=== PATIENT | male | born 1940 | race Caucasian/White ===

== ENCOUNTER 2016-11-28 08:47 | Emergency (ER) | payer OTHER, MEDICARE, BC ==
--- OUTSIDE RECORDS SUMMARY | 2016-11-28 09:44 | XMS REPORT | Continuity of Care Document ---
:1940 Author Organization [facility] ([facility]) [place] [address] Phone [phone] Care Team Providers Name Role Phone Jazz Chacon Primary Care Provider [phone] Source Comments This disclosure is being made pursuant to the Care Everywhere program, applicable federal and state laws, and may not contain all informaitonavailable regarding this patient.[facility] ([facility]) Active Allergies and Adverse Reactions No Known Allergies Current Medications Prescription Sig. Disp. Refills Start Date End Date Status omeprazole 20 mg Take 20 mg by Active extended release mouth daily. capsule multivitamin tablet Take 1 Tab by Active mouth daily. ASCORBATE CALCIUM Take 1 Tab by Active (VITAMIN C PO) mouth daily allopurinol 300 mg Take 100 mg by Active tablet mouth daily. diltiazem 240 mg ER Take 240 mg by 3 07/23/2015 Active capsule mouth daily. JANTOVEN 4 mg tablet 9mg one day, 10mg 2 08/03/2015 Active the next JANTOVEN 1 mg tab 9mg one day, 10mg 07/08/2015 Active tablet the next furosemide 40 mg tablet Take 0.5 tablets 30 tablet 11 04/28/2016 Active (20 mg total) by mouth daily. carBAMazepine Take 100 mg by 1 09/16/2016 Active (CARBATROL) 200 mg CR mouth 2 times capsule daily. losartan 100 mg tablet Take 100 mg by 5 09/21/2016 Active mouth daily. 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 Overview: For RCC in 2000 -no chemo or radiation given Chronic kidney disease, stage IV (severe) 06/14/2011 Resolved Problems Problem Noted Date Resolved Date Lumps on the skin 06/14/2011 08/30/2015 Overview: Most Recent Encounters Date Type Specialty Providers Description 10/24/2016 Office Visit Heart and Vascular Lavonne Colindres MD Dx: Chronic atrial fibrillation (Primary Dx) 10/19/2016 Telephone Renal and Hypertension My 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, Chief Comp: STEAM TABLE ATTENDANT Appointment Request Immunizations Name Dates Previously Given Next Due Influenza 09/29/2016,12/25/2012 Influenza, unspecified 07/15/2013 Pneumococcal Conjugate, PCV13 (Prevnar 13) 10/13/2016 Zoster, live (Zostavax) 06/06/2013 Social History Tobacco Use Types Packs/Day Years Used Date Former Smoker Cigarettes 1 20 Quit: 10/15/2003 Smokeless Tobacco: Former User Snuff Quit: 09/14/2016 Tobacco Cessation:Counseling Given: Yes Comments: Alcohol Use Drinks/Week oz/Week Comments Yes 5 Shots of liquor 3.0 every night Last Filed Vital Signs Vital Sign Reading Time Taken Blood Pressure 120/64 10/24/2016 2:07 PM [employer] Pulse 80 10/24/2016 2:07 PM [employer] Temperature 35.5 C (95.9 F) 03/14/2016 8:42 AM CDT Respiratory Rate 20 01/22/2014 8:00 AM CDT Height 1.803 m (5' 11") 10/24/2016 2:07 PM [employer] Weight 86.183 kg (190 lb) 10/24/2016 2:07 PM [employer] Body Mass Index 26.51 10/24/2016 2:07 PM [employer] Oxygen Saturation 97% 01/22/2014 7:52 AM CDT Plan of Care Date Type Specialty Providers Description 12/19/2016 Appointment Renal and Hypertension My Acosta ARNP Chief Comp: Patient [address] [place] [address] Visit [phone] (Fax) 03/27/2017 Appointment Heart and Vascular Lavonne Colindres MD Chief Comp: Patient [address] [place] [address] Visit [phone] (Fax) Health Maintenance Due Date Last Done Comments Hepatitis B Vaccine (1 of 3 - Primary 1940 Series) Tdap Vaccine 1951 Td Vaccine 1958 Colonoscopy 1990 Pneumococcal Vaccine (2 of 2 - 10/13/2017 10/13/2016 PPSV23) Lipid Disorder Screening 03/14/2021 03/14/2016 Zoster Vaccine Completed 06/06/2013 Influenza Vaccine: Seasonal Completed 09/29/2016, 07/15/2013, 12/25/2012 Results from Last 3 Months Not on file
--- NOTE | 2016-11-28 09:55 | ERNOTE ---
Medical Problem HPI - General Chief Complaint: Foreign Body Time Seen by Provider: 11/28/16 09:43 Source: patient Exam Limitations: no limitations - Immun/Allergies/Home Medications Immunizations: IMMUNIZATION HX History of Influenza Vaccine Yes Hx Pneumococcal Vaccination Yes Allergies/Adverse Reactions: Allergies morphine Adverse Reaction (Unknown, Verified 11/28/16 08:58) Nausea FROM [employer]GE[employer] SHEET Home Medications: HOME MEDICATIONS Diltiazem HCl [Diltia Xt] 240 mg PO BID 10/15/12 [Last Taken Unknown] Fluticasone Furoate [Veramyst] 1 spray INH DAILY 10/15/12 [Last Taken Unknown] Multivitamin with Minerals [Multiple Vitamin] 1 tab PO DAILY 10/15/12 [Last Taken Unknown] Warfarin Sodium [Coumadin] 9 mg PO DAILY 10/15/12 [Last Taken Unknown] Losartan Potassium [Cozaar] 100 mg PO DAILY 12/25/12 [Last Taken Unknown] Omeprazole [Prilosec Generic] 20 mg PO DAILY 12/25/12 [Last Taken Unknown] Furosemide [Lasix] 40 mg PO DAILY 01/05/14 [Last Taken Unknown] Allopurinol [Zyloprim] 300 mg PO BID 03/15/15 [Last Taken Unknown] - History of Present History Narrative: Patient was at his dentist this morning and accidentally swallowed a crown. He coughed briefly initially but has been asymptomatic since, no coughing, no pain. His dentist wanted him to be evaluated to make sure he did not aspirate the crown Date (Duration): 11/28/16 Review of Systems - Review of Systems Constitutional: Absent: recent illness, fever ENT: Absent: nose congestion, sore throat Respiratory: Absent: shortness of breath, cough Cardiology: Absent: chest pain Gastrointestinal/Abdominal: Absent: nausea, vomiting, abdominal pain Neurological: Absent: headache - Patient's Past Medical History Patient History - Medical: GERD, Renal Failure Patient History - Cardiac/Respiratory: Atrial Fibrillation, Hypertension, Hyperlipidemia Patient History - Cancer: Kidney Patient History - Surgical Procedures: Appendectomy Patient History - Other: None - Family History Mother Family History - Medical: Father Family History - Medical: - Social History Living Situations: spouse Abuse History: No History of abuse Psych History: No pertinent hx Smoking Status: Former smoker Alcohol Use: heavy Drug Use: none - Immunizations Hx Pneumococcal Vaccination: Yes History of Influenza Vaccine: Yes Physical Exam - Physical Exam General Appearance: Present: wd/wn, alert, no apparent distress Respiratory: Present: no respiratory distress, normal breath sounds, no accessory muscle use, lungs clear Cardiovascular/Chest: Present: no murmur, irregularly irregular Gastrointestinal/Abdominal: Present: normal bowel sounds, nontender, nondistended, soft Neurological Exam: Present: alert, oriented, normal mood/affect Skin Exam: Present: normal color, warm/dry ED Progress - Vital Signs Patient's Vital Signs:: I have reviewed the patient's vital signs. Vital Signs: Vital Signs 11/28/16 08:55 Temperature 35.5 C L Pulse Rate 95 Respiratory 14 Rate Blood Pressure 160/111 O2 Sat by Pulse 97 Oximetry - X-Ray X-Ray #1 X-Ray: abdomen - foreign body in abdomen on lateral view Interpretation: Reviewed by me - Progress/Reassessment Chief Complaint: Foreign Body Departure - Departure Clinical Impression: Foreign body, swallowed Qualifiers: Encounter type: initial encounter Qualified Code(s): T18.9XXA - Foreign body of alimentary tract, part unspecified, initial encounter Disposition: Home self-care Condition: Good Instructions: Swallowed Foreign Body, Adult, [id number] Additional Instructions: it looks like the crown is already in your abdomen, there should be no problem passing it through, come back to the ER for any concerns Referrals: Jazz Chacon MD [Primary Care Provider] -
[2016-11-28 10:11] VITALS: BP 164/105
== END 2016-11-28 09:56 | disposition home or self-care (01) ==
LOC: ER 08:47
DX: T18.2XXA Foreign body in stomach, initial encounter (principal); X58.XXXA Exposure to other specified factors, initial encounter; Y93.89 Activity, other specified; Y92.531 Health care provider office as the place of occurrence of the external cause; Y99.9 Unspecified external cause status; I48.91 Unspecified atrial fibrillation; Z79.01 Long term (current) use of anticoagulants; K21.9 Gastro-esophageal reflux disease without esophagitis; I10 Essential (primary) hypertension; N19 Unspecified kidney failure; Z85.528 Personal history of other malignant neoplasm of kidney

== ENCOUNTER 2017-10-28 09:09 | Emergency (ER) | payer MEDICARE, BC ==
[2017-10-28 09:46] LABS: Hematocrit 29.5 % (42.0-52.0); Hemoglobin 10.1 gm/dL (13.5-18.0); Mean Cell Volume 105.7 fl (78-100); Mean Corpuscular Hemoglobin 36.2 pg (27-31); Mean Corpuscular Hgb Conc 34.2 g/dl (32-36); Mean Platelet Volume 8.5 fl (6.0-9.5); Platelet Count 191 K/mm3 (150-450); Red Blood Count 2.79 M/mm3 (4.7-6.0); White Blood Count 5.7 K/mm3 (4.0-10.5)
[2017-10-28 09:48] LABS: Total Cells Counted 100
[2017-10-28 09:57] LABS: INR 1.22 INR (0.90-1.10); Partial Thrombolplastin Time 32.4 Seconds (24-32); Prothrombin Time (Patient) 12.2 Seconds (9.0-11.0)
[2017-10-28 10:03] LABS: Eosinophil 4 % (0-3); Lymphocyte 19 % (20-51); Monocyte 10 % (0-9); Neutrophil 67 % (42-75); Neutrophil # 3.8 K/mm3 (1.3-6.0); Platelet Estimate Normal (NORMAL); RBC Morphology Normal (NORMAL)
[2017-10-28 10:05] VITALS: BP 142/84
--- NOTE | 2017-10-28 10:32 | ERNOTE ---
Medical Problem HPI - Narrative Date of Service: 10/28/17 - General Chief Complaint: Flu Symptoms Time Seen by Provider: 10/28/17 09:26 Source: patient Exam Limitations: no limitations - Immun/Allergies/Home Medications Immunizations: IMMUNIZATION HX History of Influenza Vaccine Yes Hx Pneumococcal Vaccination Yes Allergies/Adverse Reactions: Allergies morphine Adverse Reaction (Unknown, Verified 10/28/17 09:18) Nausea FROM SURGEON ORDER SHEET Home Medications: HOME MEDICATIONS Diltiazem HCl [Diltia Xt] 240 mg PO BID 10/15/12 [Last Taken Unknown] Fluticasone Furoate [Veramyst] 1 spray INH DAILY 10/15/12 [Last Taken Unknown] Multivitamin with Minerals [Multiple Vitamin] 1 tab PO DAILY 10/15/12 [Last Taken Unknown] Losartan Potassium [Cozaar] 100 mg PO DAILY 12/25/12 [Last Taken Unknown] Omeprazole [Prilosec Generic] 20 mg PO DAILY 12/25/12 [Last Taken Unknown] Furosemide [Lasix] 40 mg PO DAILY 01/05/14 [Last Taken Unknown] Allopurinol [Zyloprim] 300 mg PO BID 03/15/15 [Last Taken Unknown] Doxycycline Hyclate [Vibramycin] 100 mg IV BID #20 vial 10/28/17 [Last Taken Unknown] - History of Present History Narrative: patient has been sick for last 2-3 weeks with cough and congestion , feels somewhat unsteady Timing: constant Severity: moderate Modifying Factors - (Improves): Present: other - nothing Modifying Factors - (Worsens): Present: movement Review of Systems - Narrative Narrative: patient has flet sick for 2-3 weeks - Review of Systems Constitutional: Present: See HPI EYE: Present: blurred vision ENT: Present: nose congestion, nasal drainage, sore throat Respiratory: Present: shortness of breath, cough Cardiology: Present: no symptoms reported Gastrointestinal/Abdominal: Present: no symptoms reported Genitourinary: Present: no symptoms reported Musculoskeletal: Present: muscle pain, muscle stiffness Skin: Present: See HPI Neurological: Present: no symptoms reported Endocrine: Present: no symptoms reported Hematologic/Lymphatic: Present: no symptoms reported Psych: Present: no symptoms reported - Narrative Narrative: hx of a-fib - Patient's Past Medical History Patient History - Medical: GERD, Renal Failure Patient History - Cardiac/Respiratory: Atrial Fibrillation, Hypertension, Hyperlipidemia Patient History - Cancer: Kidney Patient History - Surgical Procedures: Appendectomy Patient History - Other: None - Family History Family History:: no untoward family reactions to anesthesia, no familial bleeding tendencies, no family history of premature - Family History Mother Family History - Medical: Family History - Cardiac/Respiratory: No pertinent hx Family History - Cancer: No pertinent family hx Father Family History - Medical: Family History - Cardiac/Respiratory: No pertinent hx Family History - Cancer: No pertinent family hx - Social History Living Situations: home Abuse History: No History of abuse Psych History: No pertinent hx Does anyone smoke in the home?: No Smoking Status: Former smoker Have you smoked in the past 12 months: No Do you dip or chew tobacco: No Patient requests Smoking Cessation Consult: No Initiate information on Smoking Cessation: No Alcohol Use: none Drug Use: none - Immunizations Immunizations Up to Date: No Hx Pneumococcal Vaccination: Yes History of Influenza Vaccine: Yes Physical Exam - Physical Exam Narrative: patient appears in mild distress General Appearance: Present: mild distress Head Exam: Present: normal inspection, no evidence of injury Eye Exam: Normal inspection: bilateral, PERRL: bilateral, EOMI: bilateral Ears, Nose, Throat: Present: normal ENT inspection Neck: Present: normal inspection, nontender Respiratory: Present: no respiratory distress, normal breath sounds, no accessory muscle use, chest nontender, lungs clear Cardiovascular/Chest: Present: regular rate, rhythm, no murmur, normal peripheral pulses Gastrointestinal/Abdominal: Present: normal bowel sounds, nontender, nondistended, soft, no organomegaly Back Exam: Present: normal inspection, normal range of motion, no CVA tenderness , no vertebral tenderness Extremity Exam: Present: normal inspection, non-tender, normal range of motion, no edema Neurological Exam: Present: alert, oriented, normal mood/affect, no motor/ sensory deficits DTR: N=norm/NB=norm/brisk/A=abs/DD=dull/dimin/HC=hyperactive: Bicep (R): Normal , Bicep (L): Normal, Tricep (R): Normal, Tricep (L): Normal, Knee (R): Normal, Knee (L): Normal, Ankle (R): Normal, Ankle (L): Normal ED Progress - Date and Time Seen: Date and Time: 10/28/17 10:26 condition unchanged - Vital Signs Vital Signs: Vital Signs 10/28/17 10/28/17 09:12 10:05 Temperature 36.4 C L Pulse Rate 89 86 Respiratory 12 12 Rate Blood Pressure 147/87 142/84 O2 Sat by Pulse 94 94 Oximetry - Progress/Reassessment Chief Complaint: Flu Symptoms Plan - Plan Plan: to be discharged Departure Clinical Impression: Pneumonia - Departure Disposition: Home Follow Up Needed Condition: Fair Instructions: Community-Acquired Pneumonia, Adult, [id number] Referrals: Jzaz Chacon MD [Primary Care Provider] - Prescriptions: Doxycycline Hyclate [Vibramycin] 100 mg IV BID #20 vial
== END 2017-10-28 10:33 | disposition home or self-care (01) ==
LOC: ER 09:09
DX: J18.9 Pneumonia, unspecified organism (principal); I10 Essential (primary) hypertension; I48.91 Unspecified atrial fibrillation; N19 Unspecified kidney failure; K21.9 Gastro-esophageal reflux disease without esophagitis; Z85.528 Personal history of other malignant neoplasm of kidney; Z87.891 Personal history of nicotine dependence

== ENCOUNTER 2020-08-06 03:17 | Observation (INO) ==
[2020-08-06] MEDS ORDERED: NITROGLYCERIN 0.4 MG/TAB BTL SL STA ×2 (03:36→03:50)
--- NOTE | 2020-08-06 03:50 | ERNOTE ---
Chest Pain/Cardiac HPI Chief Complaint: Chest Pain Time Seen by Provider: 08/06/20 03:35 Source: patient, RN notes reviewed Exam Limitations: no limitations Immunizations: IMMUNIZATION HX Immunizations Up to Date Yes History of Influenza Vaccine Yes Hx Pneumococcal Vaccination Yes Allergies/Adverse Reactions: Allergies morphine Adverse Reaction (Unknown, Verified 08/06/20 03:30) Nausea FROM SURGEON ORDER SHEET Home Medications: HOME MEDICATIONS Multivitamin with Minerals [Multiple Vitamin] 1 tab PO DAILY 10/15/12 [Last Taken Unknown] Warfarin Sodium [Coumadin] 6 mg PO FR 09/26/19 [Last Taken 10/16/19] sodium bicarbonate 650 mg tablet 650 mg PO BID 09/29/19 [Last Taken Unknown] omeprazole 20 mg capsule,delayed release See Rx Instructions .ROUTE .COMPLEX #90 cap 02/10/20 [Last Taken Unknown] Warfarin Sodium [Coumadin] 8 mg PO SUMOWETHSA 02/29/20 [Last Taken Unknown] warfarin 1 mg tablet 1 mg PO Q OTHER DAY #60 tab 03/26/20 [Last Taken Unknown] allopurinol 300 mg tablet 300 mg PO BID #180 tab 04/05/20 [Last Taken Unknown] furosemide 20 mg tablet 20 mg PO DAILY #180 tab 04/06/20 [Last Taken Unknown] albuterol sulfate 90 mcg/actuation aerosol inhaler 2 inh IH Q4H PRN #8.5 g 06/04/20 [Last Taken Unknown] losartan 100 mg tablet 100 mg PO DAILY #90 tab 07/20/20 [Last Taken Unknown] tiotropium bromide 18 mcg capsule with inhalation device 1 cap IH DAILY #60 inh 07/26/20 [Last Taken Unknown] carbamazepine 200 mg capsule,extended release [id number] See Rx Instructions .ROUTE .COMPLEX #60 cap 07/27/20 [Last Taken Unknown] diltiazem HCl 240 mg capsule,extended release 24 hr See Rx Instructions .ROUTE .COMPLEX #60 cap 07/27/20 [Last Taken Unknown] Narrative: Is an 80-year-old white male with past medical history significant for atrial fibrillation renal cell cancer, was seen in the ER a few days ago after falling, states he had taken a sleeping pill earlier fall asleep in a chair when he was awakened by substernal chest pain. Pain did not radiate. It is made worse with taking a deep breath. Did have some associated shortness of breath but no diaphoresis, nausea or vomiting. Did not take any medicines prior to coming to the ER and came to the ER via POV. He states he still having substernal chest pressure at this time. Denies heartburn or indigestion or changes in bowels. He does take Coumadin for his atrial fibrillation is continue this. He denies any significant chest discomfort after his fall a few days ago. He denies any abdominal pain. Timing: constant Severity/Quality: moderate, pressure Location: substernal Chest Pain Radiation: no radiation Activities at Onset: none, sleep Modifying Factors - Improves: Present: nothing Modifying Factors - Worsens: Present: breathing, movement Nitro Today/Relief: no nitro taken today Aspirin Treatment Today: no aspirin today Associated Symptoms: Absent: headache, dizziness, syncope, cough, shortness of breath, diaphoresis, fever/chills, palpitations, heartburn, nausea, vomiting, abdominal pain, weakness, back pain, swelling/lump in chest Prior Chest Pain/Cardiac Workup: Reports: prior chest pain, cardiac cath Prior Treatment: Reports: recently seen Review of Systems - Review of Systems Constitutional: Absent: fever, chills, malaise EYE: Absent: blurred vision, double vision ENT: Absent: ear pain, nose congestion, nasal drainage, sore throat Respiratory: Absent: shortness of breath, cough, orthopnea, wheezing Cardiology: Present: See HPI, chest pain. Absent: palpitations, syncope, edema, claudication Gastrointestinal/Abdominal: Present: other - Black stools that are chronic due to iron tablets he takes chronically, no change otherwise. Absent: nausea, vomiting, diarrhea, constipation, abdominal pain Genitourinary: Absent: frequency, dysuria Musculoskeletal: Present: no symptoms reported Skin: Present: no symptoms reported Neurological: Absent: emotional problems, headache, dizziness/light-headedness, seizure, weakness, numbness, tingling Endocrine: Absent: excessive sweating, flushing, intolerance to heat, intolerance to cold, increased thirst, increased urine Hematologic/Lymphatic: Present: easy bruising, easy bleeding Psych: Absent: anxiety, depressed Medical History (Last Reviewed 08/06/20 @ 03:41 by Oracio Gomez MD) History of renal cell cancer (Resolved) Onset Date: Unknown Diverticulitis (Resolved) Gout (Chronic) Onset Date: Unknown Hyperlipidemia (Chronic) Onset Date: Unknown Essential hypertension (Chronic) Onset Date: Unknown Chronic renal failure, stage 3 (moderate) (Chronic) Onset Date: Unknown Renal insufficiency (Chronic) Onset Date: ~2012 Hx of lower gastrointestinal bleeding Atrial fibrillation Onset Date: ~2012 Malignant neoplasm of kidney, except pelvis Onset Date: Unknown Surgical History: Surgical History (Last Reviewed 08/06/20 @ 03:41 by Oracio Gomez MD) History of biopsy of temporal artery Onset Date: 12/26/12 [id number]. History of colonoscopy Onset Date: 05/06/14 05/03/04 [place]-narrowing beyond 80cm, 12/04/08 [place] hyperplastic x2, prominent lymphoid aggregate w/mild inflammation. 01/06/11 [facility]- fragments of tubular adenoma @90cm, hyperplastic @55cm. 05/06/14 [facility]-tubular adenoma x3, hyperplastic polyp. 10/22/19 [facility]-capacious colon, sigmoid diverticulosis. Recheck 10 yrs. History of nephrectomy Onset Date: ~1999 right for renal cell carcinoma History of prostate biopsy Onset Date: Unknown [facility]-negative. History of repair of rotator cuff Onset Date: ~2007 [facility]-right. [place]-left. 12/26/07 [place]-right. 04/2008 [place]-right. History of tonsillectomy Onset Date: Unknown History of vasectomy Onset Date: Unknown Hx of appendectomy Onset Date: ~1941 Hx of hernia repair Onset Date: ~1957 left inguinal Family History: Family History (Last Reviewed 08/06/20 @ 03:42 by Oracio Gomez MD) Father , age 63-[place] Myocardial infarction Emphysema of lung Mother , age 83-heart disease Heart disease Brother Hepatitis C Macular degeneration HIV antibody positive Sister , age 63-stroke HIV antibody positive Brother , age 79-cancer Cancer eye w/mets Heart disease Sister Macular degeneration Social History: (Last Reviewed 08/06/20 @ 03:42 by Oracio Gomez MD) Social History: adopted: No foster care: No care home: No Marital status: lives independently: No household members: spouse number of children: 3 caregiver/support person: No current occupational status: employed Highest education level completed: Professional school degre Service: No Tobacco: Smoking Status: Current every day smoker tobacco type: smokeless tobacco Alcohol: alcohol intake: current Substance Use: substance use type: does not use Dietary Habits: caffeine: Yes Personal Safety: victim of physical abuse: No victim of emotional abuse: No Physical Exam - Physical Exam General Appearance: Present: wd/wn, alert, mild distress, moderate distress, lethargic Head Exam: Present: ecchymosis - Scattered left face and scalp Eye Exam: Normal inspection: bilateral, PERRL: bilateral, EOMI: bilateral Ears, Nose, Throat: Present: normal ENT inspection Neck: Present: normal inspection, nontender, supple Respiratory: Present: no respiratory distress, normal breath sounds, no accessory muscle use, chest nontender, lungs clear Cardiovascular/Chest: Present: no murmur, tachycardia, irregularly irregular, chest tenderness - very tender (reproduces pain) R lower costo-sterno border. Gastrointestinal/Abdominal: Present: normal bowel sounds, nondistended, soft, no organomegaly, tenderness - Mild right upper quadrant, hepatomegaly Extremity Exam: Present: normal except - - Significant ecchymosis bilateral upper and lower extremities Neurological Exam: Present: alert, oriented, no motor/sensory deficits, other - Dysphoric Skin Exam: Present: normal color, warm/dry Progress - Results and Orders Patient's Lab Results:: I have reviewed the patient's lab results. Results and Orders: Laboratory Tests 08/06/20 03:45 WBC 7.9 RBC 2.19 L Hgb 7.5 L* D Hct 23.2 L* MCV 105.9 H MCH 34.2 H MCHC 32.3 RDW 15.6 H Plt Count 119 L MPV 9.5 Immature Gran % (Auto) 0.40 Immature Gran # (Auto) 0.03 Neutrophils % 72.0 Lymphocytes % 11.9 L Monocytes % 13.2 H Eosinophils % 2.0 Basophils % 0.5 Nucleated RBC % 0.0 Neutrophils # 5.7 Lymphocytes # 0.94 L Monocytes # 1.1 H Eosinophils # 0.2 Absolute Basophils 0.0 Laboratory Tests 08/06/20 03:45 PT 20.0 H INR (Anticoag Therapy) 2.08 H PTT ([place]) 36.7 H Laboratory Tests 08/06/20 03:45 Sodium 136 Plasma Sodium 136 Potassium 4.8 H Chloride 102 Carbon Dioxide 20.7 L Anion Gap 18.1 H BUN 94 H Creatinine 5.33 H Est GFR (Non-Af Amer) 11 L BUN/Creatinine Ratio 17.6 Random Glucose 97 Calcium 8.4 Calcium Adj for Albumin 9.5 Total Bilirubin 0.4 AST 26 ALT 27 Alkaline Phosphatase 385 H Troponin I 0.042 Total Protein 6.5 Albumin 2.2 L Laboratory Tests 08/06/20 05:35 WBC 7.0 RBC 2.05 L Hgb 6.9 L* Hct 21.8 L* MCV 106.3 H MCH 33.7 H MCHC 31.7 L RDW 15.6 H Plt Count 111 L MPV 9.3 Immature Gran % (Auto) 0.30 Immature Gran # (Auto) 0.02 Neutrophils % 82.0 H Lymphocytes % 5.6 L Monocytes % 10.4 H Eosinophils % 1.4 Basophils % 0.3 Nucleated RBC % 0.0 Neutrophils # 5.7 Lymphocytes # 0.39 L Monocytes # 0.7 Eosinophils # 0.1 Absolute Basophils 0.0 Laboratory Tests 08/06/20 05:35 Troponin I 0.044 - Vital Signs Patient's Vital Signs:: I have reviewed the patient's vital signs. Vital Signs: Vital Signs 08/06/20 03:17 Temperature 37.2 C Pulse Rate 102 H Respiratory Rate 22 H Blood Pressure 169/111 H O2 Sat by Pulse Oximetry 100 - EKG EKG #1 EKG: atrial fibrillation, no ST T wave changes, unchanged from - 05/21/2020 EKG read: Interp. by me EKG Comments: No acute EKG changes. Patient is still in atrial fibrillation. EKG appears to be unchanged from 05/21/2020. - X-Ray X-Ray #1 X-Ray: chest Interpretation: Interp. by me X-ray Comments: Right pleural effusion. No other acute cardiopulmonary findings. - CT/Ultrasound CT/Ultrasound Narrative: CT of the chest without contrast. Impression: 1. Moderate right pleural effusion with small to moderate left pleural effusion noted. Right posterior lower lobe infiltrate is noted. 2. No pneumothorax noted. 3. Dense coronary artery vascular calcium noted. There is a minimal 3 mm pericardial effusion noted. 4. Noted definite rib fracture noted. 5. Very small amount of fluid adjacent to the liver and upper abdomen. - Progress/Reassessment Chief Complaint: Chest Pain Progress:: Improved Progress Note-Subjective: 08/06/20 04:31 Patient states nitroglycerin x2 did not significantly improve his pain. 08/06/20 06:14 Patient did state that his chest pain was improved with the Toradol 50 mg IV x1. Patient refused ice due to already feeling chilled. He does feel tired and weak. - Transfer of Care Expected Disposition: Admit Additional Notes: Patient discussed with Dr. Santacruz who is agreeable to admit for blood transfusion and further investigation as to the source of his bleeding. Discussed with her the chest pain which believe is costochondral in nature, acute blood loss anemia, pleural effusion and chronic kidney disease. She has requested a CT of the chest be done on the patient due to his pleural effusion to be sure that this is not because of his acute blood loss anemia. Will type and cross him with irradiated blood due to his history of renal cancer. Plan - Plan Plan: Patient with a hemoglobin is 7.5 which is down from 9.3 on 08/02/2020. Given his significant ecchymosis on arms and legs is very possible that this is the cause of his decreased hemoglobin. Will type and screen him for now, given his chest pain and tachycardia. Repeat hemoglobin shows 6.9. Uncertain as to where the blood loss is coming from but would be concerned that its possibly in the chest cavity given pleural effusion and chest pain. Will discuss with on-call physician her comfort level with admission for transfusion here, especially in light of his creatinine being 5.33. Plan discussed with the patient and his . Will admit for transfusion and further investigation. 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
[2020-08-06 03:52] LABS: Mean Cell Volume 105.9 fl (78-100); Mean Corpuscular Hemoglobin 34.2 pg (27-31); Mean Corpuscular Hgb Conc 32.3 g/dl (32-36); Mean Platelet Volume 9.5 fl (8-11.3); Neutrophil # 5.7 K/mm3 (1.3-6.0); Platelet Count 119 K/mm3 (150-450); Red Blood Count 2.19 M/mm3 (4.7-6.0); Red Cell Distribution Width 15.6 % (11.5-14.0); White Blood Count 7.9 K/mm3 (4.0-10.5)
[2020-08-06 03:55] LABS: Hematocrit 23.2 % (42.0-52.0); Hemoglobin 7.5 gm/dL (13.5-18.0)
[2020-08-06 04:04] LABS: INR 2.08 INR (0.92-1.08); Partial Thrombolplastin Time 36.7 Seconds (24-32)
[2020-08-06 04:10] LABS: Albumin * 2.2 gm/dl (3.4-5.0); Anion Gap 18.1 mmol/L (6.8-13.8); BUN/Creatinine Ratio 17.6 (9.0-21.6); Bilirubin, Total 0.4 mg/dL (0.0-1.1); Ca. Corrected For Albumin 9.5 mg/dL (8.4-10.2); Calcium * 8.4 mg/dL (7.9-10.9); Carbon Dioxide 20.7 mmol/L (24-32.6); Potassium 4.8 mmol/L (3.4-4.6); Total Protein 6.5 gm/dL (6.2-8.2)
[2020-08-06 04:15] LABS: Troponin I 0.042 ng/mL (0.00-0.10)
[2020-08-06] MEDS ORDERED: KETOROLAC TROMETHAMINE 30 MG/ML VIAL IV ONE (04:28)
[2020-08-06 05:42] LABS: Mean Cell Volume 106.3 fl (78-100); Mean Corpuscular Hemoglobin 33.7 pg (27-31); Mean Corpuscular Hgb Conc 31.7 g/dl (32-36); Mean Platelet Volume 9.3 fl (8-11.3); Neutrophil # 5.7 K/mm3 (1.3-6.0); Platelet Count 111 K/mm3 (150-450); Red Blood Count 2.05 M/mm3 (4.7-6.0); Red Cell Distribution Width 15.6 % (11.5-14.0)
[2020-08-06 05:43] LABS: Hematocrit 21.8 % (42.0-52.0); Hemoglobin 6.9 gm/dL (13.5-18.0)
[2020-08-06] MEDS ORDERED: ACETAMINOPHEN 325 MG TABLET PO ONE (06:38)
[2020-08-06] MEDS ORDERED: ACETAMINOPHEN 500 MG TABLET PO PRN (09:24)
[2020-08-06] MEDS ORDERED: ALBUTEROL SULFATE 2.5 MG/0.5 ML VIAL.NEB IH PRN (09:25)
[2020-08-06] MEDS ORDERED: DILTIAZEM HCL 240 MG CAP.SR.24H PO SCH (09:30)
[2020-08-06] MEDS ORDERED: SODIUM BICARBONATE 650 MG TABLET PO SCH (09:30)
[2020-08-06] MEDS ORDERED: carBAMazepine 200 MG TAB.SR.12H PO SCH (09:30)
[2020-08-06] MEDS ORDERED: TIOTROPIUM BROMIDE 5 CAP INHALER IH SCH (09:30)
[2020-08-06] MEDS ORDERED: MULTIVITAMINS 1 CAP CAPSULE PO SCH (09:30)
--- NOTE | 2020-08-06 10:00 | HP ---
Chief Complaint - Chief Complaint Date of Service: 08/06/20 Time of Service: 09:43 Chief Complaint: I fell several days ago and and injured my legs, I also had chest pain yesterday. History of Present Illness: 80-year-old male with past medical history of end-stage renal disease, hypertension, renal cell carcinoma, anemia of chronic disease, COPD, hyperlipidemia, atrial fibrillation, was evaluated in the ER for chest pain/pressure accompanied by worsening shortness of breath over the past 2 days. Patient reports that he was evaluated in the ER 3 days ago for a fall that occurred while going up some steps in front of his home. The patient fell onto his legs and torso injuring his shins which caused significant bleeding. The patient is currently on Coumadin for atrial fibrillation which resulted in prolonged bleeding that was difficult to stop. So the patient came into the ER where he was evaluated and his injuries were cleaned and dressings were applied. He was then discharged home. However he reports the following night he fell asleep in his arm chair and was awakened by a retrosternal chest pain which he has not had before. He reports the pain was sharp and was accompanied by pressure in his chest, he denies heart disease such as heart attacks in the past. The patient does report having a long history with COPD and says that his condition has been getting worse despite his inhalers prescribed by his pu lmonologist but he denies being on oxygen. Once in the ER the patient underwent chest imaging which revealed bilateral pleural effusions and atelectasis but no hemothorax. EKG was unchanged from his previous and there was no signs of MO, and his troponins were negative. Once given pain medications his pain improved. The pain appears to be pleuritic in nature which favors a costochondral etiolo gy more than anything else. Medical History (Last Reviewed 08/06/20 @ 03:41 by Oracio Gomez MD) History of renal cell cancer (Resolved) Onset Date: Unknown Diverticulitis (Resolved) Gout (Chronic) Onset Date: Unknown Hyperlipidemia (Chronic) Onset Date: Unknown Essential hypertension (Chronic) Onset Date: Unknown Chronic renal failure, stage 3 (moderate) (Chronic) Onset Date: Unknown Renal insufficiency (Chronic) Onset Date: ~2012 Hx of lower gastrointestinal bleeding Atrial fibrillation Onset Date: ~2012 Malignant neoplasm of kidney, except pelvis Onset Date: Unknown Surgical History: Surgical History (Last Reviewed 08/06/20 @ 03:41 by Oracio Gomez MD) History of biopsy of temporal artery Onset Date: 12/26/12 [facility]ucil[facility]. History of colonoscopy Onset Date: 05/06/14 05/03/04 [place]-narrowing beyond 80cm, 12/04/08 [place] hyperplastic x2, prominent lymphoid aggregate w/mild inflammation. 01/06/11 [facility]- fragments of tubular adenoma @90cm, hyperplastic @55cm. 05/06/14 [facility]-tubular adenoma x3, hyperplastic polyp. 10/22/19 [place]-capacious colon, sigmoid diverticulosis. Recheck 10 yrs. History of nephrectomy Onset Date: ~1999 right for renal cell carcinoma History of prostate biopsy Onset Date: Unknown [facility]-negative. History of repair of rotator cuff Onset Date: ~2007 [facility]-right. [place]-left. 12/26/07 [place]-right. 04/2008 [place]-right. History of tonsillectomy Onset Date: Unknown History of vasectomy Onset Date: Unknown Hx of appendectomy Onset Date: ~1941 Hx of hernia repair Onset Date: ~1957 left inguinal Family History: Family History (Last Reviewed 08/06/20 @ 03:42 by Oracio Gomze MD) Father , age 63-[place] Myocardial infarction Emphysema of lung Mother , age 83-heart disease Heart disease Brother Hepatitis C Macular degeneration HIV antibody positive Sister , age 63-stroke HIV antibody positive Brother , age 79-cancer Cancer eye w/mets Heart disease Sister Macular degeneration Social History: (Last Reviewed 08/06/20 @ 03:42 by Oracio Gomez MD) Social History: adopted: No foster care: No longterm: No Marital status: lives independently: No household members: spouse number of children: 3 caregiver/support person: No current occupational status: employed Highest education level completed: Professional school degre Service: No Tobacco: Smoking Status: Current every day smoker tobacco type: smokeless tobacco Alcohol: alcohol intake: current Substance Use: substance use type: does not use Dietary Habits: caffeine: Yes Personal Safety: victim of physical abuse: No victim of emotional abuse: No Peds Patient Hx - Developmental: No Pertinent Hx Peds Patient Hx - Medical: No Pertinent Hx Peds Patient Hx - Cardiac/Respiratory: No Pertinent Hx Peds Patient Hx - Surgical: No Surgical History Patient History - Cancer: No Hx of Cancer Review Of Systems (GEN) - Review of Systems Generalized/Overall Review: Present: Weakness EENTM: Present: No Symptoms Reported Respiratory: Present: Shortness of Breath Cardiac: Present: Chest Pain Abdominal: Present: No Symptoms Reported Genitourinary: Present: No Symptoms Reported Musculoskeletal: Present: Joint Pain - Bilateral lower extremity pain due to fall Neurological: Present: No Symptoms Reported Skin: Present: No Symptoms Reported Endocrine: Present: No Symptoms Reported Immunizations: IMMUNIZATION HX Immunizations Up to Date Yes History of Influenza Vaccine Yes Hx Pneumococcal Vaccination Yes Allergies/Adverse Reactions: Allergies Allergy/AdvReac Type Severity Reaction Status Date / Time morphine AdvReac Unknown Nausea Verified 08/06/20 03:30 Home Medications: HOME MEDICATIONS Multivitamin with Minerals [Multiple Vitamin] 1 tab PO DAILY 10/15/12 [Last Taken Unknown] Warfarin Sodium [Coumadin] 4 mg PO FR 09/26/19 [Last Taken 10/16/19] sodium bicarbonate 650 mg tablet 650 mg PO BID 09/29/19 [Last Taken Unknown] omeprazole 20 mg capsule,delayed release See Rx Instructions .ROUTE .COMPLEX #90 cap 02/10/20 [Last Taken Unknown] Warfarin Sodium [Coumadin] 8 mg PO SUMOWETHSA 02/29/20 [Last Taken 08/05/20] warfarin 1 mg tablet 1 mg PO Q OTHER DAY #60 tab 03/26/20 [Last Taken Unknown] allopurinol 300 mg tablet 300 mg PO BID #180 tab 04/05/20 [Last Taken Unknown] furosemide 20 mg tablet 20 mg PO DAILY #180 tab 04/06/20 [Last Taken Unknown] albuterol sulfate 90 mcg/actuation aerosol inhaler 2 inh IH Q4H PRN #8.5 g 06/04/20 [Last Taken Unknown] losartan 100 mg tablet 100 mg PO DAILY #90 tab 07/20/20 [Last Taken Unknown] tiotropium bromide 18 mcg capsule with inhalation device 1 cap IH DAILY #60 inh 07/26/20 [Last Taken Unknown] carbamazepine 200 mg capsule,extended release [id number] See Rx Instructions .ROUTE .COMPLEX #60 cap 07/27/20 [Last Taken Unknown] diltiazem HCl 240 mg capsule,extended release 24 hr See Rx Instructions .ROUTE .COMPLEX #60 cap 07/27/20 [Last Taken Unknown] Exam - Exam Vital Signs: Vital Signs - Last Taken Temp 36.9 C 08/06/20 08:06 Pulse 84 08/06/20 08:06 Resp 16 08/06/20 08:06 BP 135/70 08/06/20 08:06 Pulse Ox 100 08/06/20 08:06 Constitutional: Present: Alert, Oriented x3, Cooperative, Well developed, Well nourished, No distress, Elderly ENT Exam: Present: normal ENT inspection, hearing grossly normal Eye Exam: bilateral eye: normal inspection, PERRL, EOMI Neck: Present: non-tender, full range of motion, supple, normal inspection, trachea midline Back Exam: Present: normal inspection, no CVA tenderness, no vertebral tenderness Breasts: Present: Exam deferred Respiratory: Present: chest non-tender, lungs clear, no respiratory distress, no accessory muscle use, decreased breath sounds Cardiovascular/Chest: Present: no chest tenderness, no edema, no gallop, no JVD, no murmur, no rub, irregularly irregular Peripheral Pulses: dorsalis-pedis (R): 2+, dorsalis-pedis (L): 2+ Abdomen: Present: Normal bowel sounds, soft, nontender, nondistended, no rebound tenderness, no hepatospenomegaly, no masses /Rectal: Present: Exam deferred Extremity: Present: no pedal edema, no calf tenderness, normal capillary refill, pelvis stable, other - Multiple abrasions and hematomas on anterior left lower leg, and large hematoma on right patellar region. Large extensive hematomas on upper extremities that extend from elbows to hand. Skin Exam: Present: warm/dry, no cyanosis, other - Multiple hematomas in upper extremities and lower extremities. Multiple abrasions and contusions on left anterior nguyen. Lymphatic: Present: no adenopathy Neurologic: Present: documentation designer II-XII nml as tested, normal cerebellar test, no motor/sensory deficits, alert, normal mood/affect, oriented x 3 Appearance: Present: appropriate appearance, appropriate insight, neat, no memory impairment Eye contact: Present: cooperative, good eye contact, normal speech Thoughts: Present: normal thought pattern, no apparent hallucination Diagnostic Studies: Abnormal Lab Results 08/06/20 08/06/20 08/06/20 Range/Units 03:45 03:45 03:45 RBC 2.19 L (4.7-6.0) M/mm3 Hgb 7.5 L* D (13.5-18.0) gm/dL Hct 23.2 L* (42.0-52.0) % MCV 105.9 H (78-100) fl MCH 34.2 H (27-31) pg MCHC (32-36) g/dl RDW 15.6 H (11.5-14.0) % Plt Count 119 L (150-450) K/mm3 Neutrophils % (42-75.0) % Lymphocytes % 11.9 L (20-51) % Monocytes % 13.2 H (0.0-9) % Lymphocytes # 0.94 L (1.5-3.5) k/mm3 Monocytes # 1.1 H (0.0-1.0) k/mm3 PT 20.0 H (9.1-10.7) Seconds INR (Anticoag Therapy) 2.08 H (0.92-1.08) INR PTT ([place]) 36.7 H (24-32) Seconds Potassium 4.8 H (3.4-4.6) mmol/L Carbon Dioxide 20.7 L (24-32.6) mmol/L Anion Gap 18.1 H (6.8-13.8) mmol/L BUN 94 H (6-23) mg/dL Creatinine 5.33 H (0.4-1.4) mg/dL Est GFR (Non-Af Amer) 11 L (60-130) mL/min Alkaline Phosphatase 385 H (50-170) U/L Albumin 2.2 L (3.4-5.0) gm/dl Crossmatch 08/06/20 08/06/20 Range/Units 04:10 05:35 RBC 2.05 L (4.7-6.0) M/mm3 Hgb 6.9 L* (13.5-18.0) gm/dL Hct 21.8 L* (42.0-52.0) % MCV 106.3 H (78-100) fl MCH 33.7 H (27-31) pg MCHC 31.7 L (32-36) g/dl RDW 15.6 H (11.5-14.0) % Plt Count 111 L (150-450) K/mm3 Neutrophils % 82.0 H (42-75.0) % Lymphocytes % 5.6 L (20-51) % Monocytes % 10.4 H (0.0-9) % Lymphocytes # 0.39 L (1.5-3.5) k/mm3 Monocytes # (0.0-1.0) k/mm3 PT (9.1-10.7) Seconds INR (Anticoag Therapy) (0.92-1.08) INR PTT ([place]) (24-32) Seconds Potassium (3.4-4.6) mmol/L Carbon Dioxide (24-32.6) mmol/L Anion Gap (6.8-13.8) mmol/L BUN (6-23) mg/dL Creatinine (0.4-1.4) mg/dL Est GFR (Non-Af Amer) (60-130) mL/min Alkaline Phosphatase (50-170) U/L Albumin (3.4-5.0) gm/dl Crossmatch See Detail Laboratory Results WBC 7.0 K/mm3 (4.0-10.5) 08/06/20 05:35 RBC 2.05 M/mm3 (4.7-6.0) L 08/06/20 05:35 Hgb 6.9 gm/dL (13.5-18.0) L* 08/06/20 05:35 Hct 21.8 % (42.0-52.0) L* 08/06/20 05:35 MCV 106.3 fl (78-100) H 08/06/20 05:35 MCH 33.7 pg (27-31) H 08/06/20 05:35 MCHC 31.7 g/dl (32-36) L 08/06/20 05:35 RDW 15.6 % (11.5-14.0) H 08/06/20 05:35 Plt Count 111 K/mm3 (150-450) L 08/06/20 05:35 MPV 9.3 fl (8-11.3) 08/06/20 05:35 Immature Gran % (Auto) 0.30 % (0.001-0.429) 08/06/20 05:35 Immature Gran # (Auto) 0.02 K/mm3 (0.000-0.0310) 08/06/20 05:35 Neutrophils % 82.0 % (42-75.0) H 08/06/20 05:35 Lymphocytes % 5.6 % (20-51) L 08/06/20 05:35 Monocytes % 10.4 % (0.0-9) H 08/06/20 05:35 Eosinophils % 1.4 % (0.0-3.0) 08/06/20 05:35 Basophils % 0.3 % (0.0-1.0) 08/06/20 05:35 Nucleated RBC % 0.0 k/mm3 (0-1) 08/06/20 05:35 Neutrophils # 5.7 K/mm3 (1.3-6.0) 08/06/20 05:35 Lymphocytes # 0.39 k/mm3 (1.5-3.5) L 08/06/20 05:35 Monocytes # 0.7 k/mm3 (0.0-1.0) 08/06/20 05:35 Eosinophils # 0.1 k/mm3 (0.0-0.7) 08/06/20 05:35 Absolute Basophils 0.0 k/mm3 (0.0-0.1) 08/06/20 05:35 PT 20.0 Seconds (9.1-10.7) H 08/06/20 03:45 INR (Anticoag Therapy) 2.08 INR (0.92-1.08) H 08/06/20 03:45 PTT ([place]) 36.7 Seconds (24-32) H 08/06/20 03:45 Sodium 136 mmol/L (132-142) 08/06/20 03:45 Plasma Sodium 136 mmol/L (130-142) 08/06/20 03:45 Potassium 4.8 mmol/L (3.4-4.6) H 08/06/20 03:45 Chloride 102 mmol/L (97-106) 08/06/20 03:45 Carbon Dioxide 20.7 mmol/L (24-32.6) L 08/06/20 03:45 Anion Gap 18.1 mmol/L (6.8-13.8) H 08/06/20 03:45 BUN 94 mg/dL (6-23) H 08/06/20 03:45 Creatinine 5.33 mg/dL (0.4-1.4) H 08/06/20 03:45 Est GFR (Non-Af Amer) 11 mL/min (60-130) L 08/06/20 03:45 BUN/Creatinine Ratio 17.6 (9.0-21.6) 08/06/20 03:45 Random Glucose 97 mg/dL (70-110) 08/06/20 03:45 Calcium 8.4 mg/dL (7.9-10.9) 08/06/20 03:45 Calcium Adj for Albumin 9.5 mg/dL (8.4-10.2) 08/06/20 03:45 Total Bilirubin 0.4 mg/dL (0.0-1.1) 08/06/20 03:45 AST 26 U/L (0-48) 08/06/20 03:45 ALT 27 U/L (19-67) 08/06/20 03:45 Alkaline Phosphatase 385 U/L (50-170) H 08/06/20 03:45 Troponin I 0.044 ng/mL (0.00-0.10) 08/06/20 05:35 Total Protein 6.5 gm/dL (6.2-8.2) 08/06/20 03:45 Albumin 2.2 gm/dl (3.4-5.0) L 08/06/20 03:45 Blood Type O Positive 08/06/20 04:10 Antibody Screen Negative 08/06/20 04:10 Crossmatch See Detail 08/06/20 04:10 Assessment/Plan - Narrative Narrative: Patient was evaluated medical chart was reviewed and decision to admit for symptomatic anemia, chest pain, bilateral pleural effusion, and chronic atrial fibrillation was made. After evaluating the patient it became apparent that his anemia resulted from prolonged bleeding due to his injuries on his lower extremities, particularly the left lower extremity. The significant anemia might be a logical explanation to his sharp chest pain. Patient was also noted to have large extensive hematomas on his upper extremities most likely due to his Coumadin. He continues to complain of being tired and weak most likely resulting from his anemia, so we will proceed to transfuse him 2 units of PRBCs. The blood has not arrived which might be due to the fact that we ordered irradiated blood given the patient's cancer history, but once it arrives we will transfuse him in order to shore up hemoglobin levels. His renal function is slightly worse than his previous however the patient does have a long history of end-stage renal disease, and the plan is to start dialysis. He has a AV fistula that was recently installed in his upper extremities but there does not appear to be any complications from this. We will follow-up after the transfusion in order to determine our next steps. In the meantime we will hold his Coumadin until we confirm that his bleeding has stopped. - Assessment/Plan (1) Symptomatic anemia Problem: Acute (2) End stage chronic kidney disease Problem: Chronic (3) COPD (chronic obstructive pulmonary disease) Problem: Acute (4) Fall Problem: Acute (5) Chronic anticoagulation Problem: Chronic (6) Atrial fibrillation Problem: Acute
--- NOTE | 2020-08-06 16:19 | DS ---
(1) Symptomatic anemia Problem: Acute (2) End stage chronic kidney disease Problem: Chronic (3) COPD (chronic obstructive pulmonary disease) Problem: Acute (4) Fall Problem: Acute (5) Chronic anticoagulation Problem: Chronic (6) Atrial fibrillation Problem: Chronic Date of Discharge:: 08/06/20 Hospital Course: 80-year-old male admitted for symptomatic anemia and bilateral pleural effusions was evaluated at bedside was found to be afebrile and in no acute distress. Patient was transfused 1 unit of PRBC and is currently receiving a second unit and has shown significant clinical improvement. He now reports feeling stronger and has more energy than when he arrived. There were no adverse events reported during the transfusion, so we will continue transfusion of second unit and wait for a follow-up CBC results. After ensuring improved hemoglobin levels, we will discharge patient home with instructions to follow-up with his PCP in 5 days. He will be discharged with orders to repeat CBC in 3 days. During bedside evaluation we discussed his allopurinol and he was told that I am reducing the dose given his end-stage renal disease. The patient was taking 300 mg twice a day I reduced it down to 100 mg twice a day, especially since he reports he has not had a gout attack in more than 5 years. I explained to him that continuing on his medication should be discussed with his PCP. Post transfusion Hmg is 9.9, px discharged home. Procedures Performed: see notes below List Procedures: Transfusion of 2 units of PRBCs. Results and Findings: Lab Pending Results 08/06/20 03:45: WBC 7.9, RBC 2.19 L, Hgb 7.5 L* D, Hct 23.2 L*, MCV 105.9 H, MCH 34.2 H, MCHC 32.3, RDW 15.6 H, Plt Count 119 L, MPV 9.5, Immature Gran % (Auto) 0.40, Immature Gran # (Auto) 0.03, Neutrophils % 72.0, Lymphocytes % 11.9 L, Monocytes % 13.2 H, Eosinophils % 2.0, Basophils % 0.5, Nucleated RBC % 0.0, Neutrophils # 5.7, Lymphocytes # 0.94 L, Monocytes # 1.1 H, Eosinophils # 0.2, Absolute Basophils 0.0 08/06/20 03:45: PT 20.0 H, INR (Anticoag Therapy) 2.08 H, PTT ([place]) 36.7 H 08/06/20 03:45: Sodium 136, Plasma Sodium 136, Potassium 4.8 H, Chloride 102, Carbon Dioxide 20.7 L, Anion Gap 18.1 H, BUN 94 H, Creatinine 5.33 H, Est GFR (Non-Af Amer) 11 L, BUN/Creatinine Ratio 17.6, Random Glucose 97, Calcium 8.4, Calcium Adj for Albumin 9.5, Total Bilirubin 0.4, AST 26, ALT 27, Alkaline Phosphatase 385 H, Troponin I 0.042, Total Protein 6.5, Albumin 2.2 L 08/06/20 04:10: Blood Type O Positive, Antibody Screen Negative, Crossmatch See Detail 08/06/20 05:35: WBC 7.0, RBC 2.05 L, Hgb 6.9 L*, Hct 21.8 L*, MCV 106.3 H, MCH 33.7 H, MCHC 31.7 L, RDW 15.6 H, Plt Count 111 L, MPV 9.3, Immature Gran % (Auto) 0.30, Immature Gran # (Auto) 0.02, Neutrophils % 82.0 H, Lymphocytes % 5.6 L, Monocytes % 10.4 H, Eosinophils % 1.4, Basophils % 0.3, Nucleated RBC % 0.0, Neutrophils # 5.7, Lymphocytes # 0.39 L, Monocytes # 0.7, Eosinophils # 0.1, Absolute Basophils 0.0 08/06/20 05:35: Troponin I 0.044 Discharge Location: Home Disposition: Home self-care Condition: Stable Face to Face Encounter completed per [facility] Guidelines: No Discharge Activity: Activity as tolerated Discharge Diet: General/regular food Referrals: Jazz Chacon MD [Primary Care Provider] - Problem Oriented Discharge Instructions to Patient/Family: Anemia Additional Patient Instructions (free text): Follow up with Dr. Chacon August 13 at 9:45a.m. Prescriptions (Any new or edited meds): Allopurinol [Zyloprim] 100 mg PO BID #120 tab Transmission Status: Received by [facility] Complete Home Medications List: Complete Home Medication List: Multivitamin with Minerals [Multiple Vitamin] 1 tab PO DAILY 10/15/12 Warfarin Sodium [Coumadin] 4 mg PO FR 09/26/19 sodium bicarbonate 650 mg tablet 650 mg PO BID 09/29/19 omeprazole 20 mg capsule,delayed release See Rx Instructions .ROUTE .COMPLEX #90 cap 02/10/20 Warfarin Sodium [Coumadin] 8 mg PO SUMOWETHSA 02/29/20 warfarin 1 mg tablet 1 mg PO Q OTHER DAY #60 tab 03/26/20 furosemide 20 mg tablet 20 mg PO DAILY #180 tab 04/06/20 albuterol sulfate 90 mcg/actuation aerosol inhaler 2 inh IH Q4H PRN #8.5 g 06/04/20 losartan 100 mg tablet 100 mg PO DAILY #90 tab 07/20/20 tiotropium bromide 18 mcg capsule with inhalation device 1 cap IH DAILY #60 inh 07/26/20 carbamazepine 200 mg capsule,extended release [id number] See Rx Instructions .ROUTE .COMPLEX #60 cap 07/27/20 diltiazem HCl 240 mg capsule,extended release 24 hr See Rx Instructions .ROUTE .COMPLEX #60 cap 07/27/20 Allopurinol [Zyloprim] 100 mg PO BID #120 tab 08/06/20 Amb Orders for Discharge: CBC Time Frame: 5 Days, Facility: [facility], Location: Laboratory Forms: Patient Portal Registration
[2020-08-06] MEDS ORDERED: carBAMazepine 100 MG TAB.CHEW PO SCH (17:00)
[2020-08-06 18:17] LABS: Hemoglobin 9.9 gm/dL (13.5-18.0); Mean Corpuscular Hemoglobin 32.6 pg (27-31); Mean Corpuscular Hgb Conc 31.9 g/dl (32-36); Mean Platelet Volume 9.9 fl (8-11.3); Neutrophil # 10.4 K/mm3 (1.3-6.0); Neutrophil % 82.9 % (42-75.0); Platelet Count 123 K/mm3 (150-450); Red Blood Count 3.04 M/mm3 (4.7-6.0); Red Cell Distribution Width 17.2 % (11.5-14.0); White Blood Count 12.6 K/mm3 (4.0-10.5)
[2020-08-06 19:48] VITALS: BP 128/72
[2020-08-06] MEDS ORDERED: PANTOPRAZOLE SODIUM 20 MG TABLET.DR PO SCH (21:00)
[2020-08-07] MEDS ORDERED: LOSARTAN POTASSIUM 50 MG TABLET PO SCH (09:00)
== END 2020-08-06 19:25 | disposition home or self-care (01) ==
LOC: MS 03:17 → ER 03:17 → MS 07:38
PROVIDERS: ADMIT Family Medicine; ATTEND Family Medicine
DX: R07.9 Chest pain, unspecified; J44.9 Chronic obstructive pulmonary disease, unspecified; N18.6 End stage renal disease; Z79.01 Long term (current) use of anticoagulants; I48.20 Chronic atrial fibrillation, unspecified; Z72.0 Tobacco use; D63.1 Anemia in chronic kidney disease